=== PATIENT | female | born 1985 | race Caucasian/White ===

== ENCOUNTER 2017-05-19 22:59 | Emergency (ER) | payer SELFPAY ==
[2017-05-19] MEDS ORDERED: Diphtheria,Pertussis(Acell),Tetanus Vaccine 0.5 ML SDV IM ONE (23:57)
--- NOTE | 2017-05-19 23:59 | EDM.PDOC ---
ED HPI GENERAL MEDICAL PROBLEM - General Chief Complaint: Bite:Animal, Insect Stated Complaint: BIT BY A DOG [id number] Time Seen by Provider: 05/19/17 23:45 Source of Information: Reports: Patient, RN, RN Notes Reviewed History Limitations: Reports: No Limitations - History of Present Illness INITIAL COMMENTS - FREE TEXT/NARRATIVE: Eugenia is a 31 yo F who present to the ER after sustaining at dog bite to her left ring finger. She reports that the injury occurred a couple hours prior to arrival when she had tried to break up a dog fight between her dog and a friends dog. She reports that she is unsure if the dogs immunizations are current. She is not up to date on her immunizations. Onset: Today Duration: Hour(s): Location: Reports: Upper Extremity, Left Quality: Reports: Stabbing, Throbbing Severity: Moderate Improves with: Reports: Rest Associated Symptoms: Reports: No Other Symptoms Left Hand Pain Score (Numeric/FACES): 8 - Related Data Allergies Allergy/AdvReac Type Severity Reaction Status Date / Time No Known Allergies Allergy Verified 05/19/17 23:33 Home Meds: Home Meds Albuterol [Proventil HFA] 1 puff INH ASDIRECTED PRN 05/19/17 [History] Past Medical History HEENT History: Reports: None Cardiovascular History: Reports: None Respiratory History: Reports: Asthma Gastrointestinal History: Reports: None Genitourinary History: Reports: None [employer] WORK[employer] History: Reports: None Musculoskeletal History: Reports: None Neurological History: Reports: None Psychiatric History: Reports: None Endocrine/Metabolic History: Reports: None Hematologic History: Reports: None Immunologic History: Reports: None Oncologic (Cancer) History: Reports: None Dermatologic History: Reports: None Social & Family History - Tobacco Use Smoking Status *Q: Heavy Tobacco Smoker Years of Tobacco use: 10 Packs/Tins Daily: 0.5 - Recreational Drug Use Recreational Drug Use: No ED ROS GENERAL - Review of Systems Review Of Systems: ROS reveals no pertinent complaints other than HPI. ED EXAM, ANIMAL BITE - Physical Exam Exam: See Below Exam Limited By: No Limitations General Appearance: Alert, WD/WN, No Apparent Distress Eye Exam: Bilateral Eye: Normal Inspection, PERRL Ears: Normal External Exam, Normal Canal, Hearing Grossly Normal, Normal TMs Nose: Normal Inspection, Normal Mucosa, No Blood Throat/Mouth: Normal Inspection, Normal Lips, Normal Teeth, Normal Gums, Normal Oropharynx, Normal Voice, No Airway Compromise Head: Atraumatic, Normocephalic Neck: Normal Inspection, Supple, Non-Tender, Full Range of Motion Respiratory/Chest: No Respiratory Distress, Lungs Clear, Normal Breath Sounds, No Accessory Muscle Use, Chest Non-Tender Cardiovascular: Normal Peripheral Pulses, Regular Rate, Rhythm, No Edema, No Gallop, No JVD, No Murmur, No Rub GI/Abdominal: Normal Bowel Sounds, Soft, Non-Tender, No Organomegaly, No Distention, No Abnormal Bruit, No Mass (Female) Exam: Deferred Rectal (Female) Exam: Deferred Back Exam: Normal Inspection, Full Range of Motion, NT Extremities: Normal Inspection, Normal Range of Motion, No Pedal Edema, Normal Capillary Refill, Arm Pain (Pain to ring finger on left hand.) Neurological: Alert, Oriented, CN II-XII Intact, Normal Cognition, Normal Gait, Normal Reflexes, No Motor/Sensory Deficits Psychiatric: Normal Affect, Normal Mood Skin Exam: Normal Color, Warm/Dry, Other (Patient has a superfical laceration to top of finger. ) Lymphatic: No Adenopathy Course - Vital Signs Last Recorded V/S: Last Vital Signs Temp 99.2 F 05/19/17 23:33 Pulse 114 H 05/19/17 23:33 Resp 18 05/19/17 23:33 BP 141/76 H 05/19/17 23:33 Pulse Ox 100 05/19/17 23:33 - Orders/Labs/Meds Orders: Active Orders 24 hr Category Date Time Status Vaccines to be Administered [RC] PER UNIT ROUTINE Care 05/19/17 23:57 Active Labs: Laboratory Tests 05/20/17 Range/Units 00:20 HCG, Qual Negative Meds: Medications Discontinued Medications Generic Name Dose Route Start Last Admin Trade Name Freq PRN Reason Stop Dose Admin Acetaminophen 650 mg 05/20/17 00:41 Tylenol PO 05/20/17 00:42 NOW ONE Amoxicillin/Clavulanate Potassium 1 tab 05/20/17 00:31 05/20/17 00:38 Augmentin 875 Mg/125 Mg PO 05/20/17 00:32 1 tab ONETIME ONE Administration Diphtheria/Tetanus/Acell Pertussis 0.5 ml 05/19/17 23:57 05/20/17 00:39 Adacel IM 05/19/17 23:58 0.5 ml .ONCE ONE Administration Departure - Departure Time of Disposition: 00:43 Disposition: Home, Self-Care 01 Condition: Good Clinical Impression: Dog bite Qualifiers: Encounter type: initial encounter Qualified Code(s): W54.0XXA - Bitten by dog, initial encounter - Discharge Information Instructions: Animal Bite, [id number] Forms: ED Department Discharge Care Plan Goals: Keep wound clean and dry. Augmentin for the next 5 days Tylenol/ibuprofen as needed for pain Ice to hand to help with swelling Return to clinic or ER if you develop fever or other concerns
[2017-05-20] MEDS ORDERED: Amoxicillin/Clavulanate K 875-125 MG Tab PO ONE (00:31)
[2017-05-20] MEDS ORDERED: Acetaminophen 325 MG Tab PO ONE (00:41)
== END 2017-05-20 00:51 | disposition home or self-care (01) ==
LOC: DL.ED 22:59
DX: S61.255A Open bite of left ring finger without damage to nail, initial encounter (principal); J45.909 Unspecified asthma, uncomplicated; F17.210 Nicotine dependence, cigarettes, uncomplicated; W54.0XXA Bitten by dog, initial encounter
CPT/HCPCS: 36415; 73120; 84703; 90471; 90715; 99283; A9270